=== PATIENT | male | born 1990 | race Asian ===

== ENCOUNTER 2019-06-06 15:40 | Emergency (ER) | payer OTHER, SELFPAY ==
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
[2019-06-06 16:00] VITALS: BP 139/86; PULSE 102; RESP 16; TEMP 36.9; O2SAT 96
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
== END 2019-06-06 18:25 | disposition home or self-care (01) ==
PROVIDERS: Emergency Provider Emergency Medicine
DX: M25.511 Pain in right shoulder (principal); R07.81 Pleurodynia; F17.200 Nicotine dependence, unspecified, uncomplicated; V43.62XA Car passenger injured in collision with other type car in traffic accident, initial encounter
CPT/HCPCS: 71100; 73030; 99284